=== PATIENT | female | born 1955 | race African-American/Black ===

== ENCOUNTER 2019-05-07 03:22 | Emergency (ER) | payer MEDICAID ==
[~2019-05-07] VITALS: Ht 162.6 cm; Wt 59.0 kg
--- NOTE | 2019-05-07 03:28 | Emergency Room Report ---
History of Present Illness General Chief Complaint: Female Urogenital Problems Source: Patient, Medical Record Present Illness HPI This is a 64-year-old female with a history of hypertension and psychiatric history. She presents with chief complaint of rectal bleeding and dysuria. Onset today. She says she is been constipated and group home gave her something for the constipation. She says she was straining and pushing and she noticed some blood in the stool. She also said that she been eating out a lot. No fever chills but no nausea no vomiting. No abdominal pain. Denies any other complaint. Allergies: Coded Allergies: HYDROCODONE (Verified Allergy, Unknown, 05/07/19) Patient History Past Medical History: see triage record, old chart reviewed, psych hx Past Surgical History: other Pertinent Family History: none Social History: Denies: smoking Last Menstrual Period: na Now: No Immunizations: other Reviewed Nursing Documentation: PMH: Agreed; PSxH: Agreed Nursing Documentation-PMH Hx Hypertension: Yes History Of Psychiatric Problem: Yes - bipolar, schizo Review of Systems Eye: Denies: eye pain, blurred vision ENT: Denies: ear pain, nose congestion, throat swelling Respiratory: Denies: cough, shortness of breath Cardiovascular: Denies: chest pain, palpitations Gastrointestinal: Denies: abdominal pain, diarrhea, nausea, vomiting Genitourinary: Reports: frequency Musculoskeletal: Denies: back pain, joint pain Skin: Denies: rash Neurological: Denies: headache, numbness Endocrine: Denies: increased thirst, increased urine Hematologic/Lymphatic: Denies: easy bruising All Other Systems: negative except mentioned in HPI Physical Exam Vital Signs Date Time Temp Pulse Resp B/P (MAP) Pulse Ox O2 Delivery O2 Flow Rate FiO2 05/07/19 03:16 97.5 51 14 127/71 (89) 93 Room Air Vitals normal Sp02 EP Interpretation: reviewed, normal General Appearance: well appearing, no apparent distress, alert Head: normocephalic, atraumatic Eyes: bilateral eye PERRL, bilateral eye EOMI ENT: hearing grossly normal, normal pharynx Neck: full range of motion, supple, no meningismus Respiratory: chest non-tender, lungs clear, normal breath sounds Cardiovascular #1: regular rate, rhythm, no murmur Gastrointestinal: normal bowel sounds, non tender, no mass, no organomegaly, no bruit, non-distended Rectal: normal rectal tone, heme negative stool Musculoskeletal: back normal, gait/station normal, normal range of motion Psychiatric: mood/affect normal Medical Decision Making Diagnostic Impression: Primary Impression: Rectal bleeding Additional Impression: Anemia Qualified Codes: D64.9 - Anemia, unspecified ER Course Patient presents this is most likely secondary to straining from constipation. Stool is heme-negative. She is anemic but appear to be chronic. No evidence of UTI. No active bleeding. Will discharge back to group home. Last Vital Signs Date Time Temp Pulse Resp B/P (MAP) Pulse Ox O2 Delivery O2 Flow Rate FiO2 05/07/19 03:16 97.5 51 14 127/71 (89) 93 Room Air Status: unchanged Disposition: [facility] Condition: Stable Additional Instructions: Follow-up with your doctor in 7 days. Return if worse. Yayo Fernandez MD May 07, 2019 03:28
--- NOTE | 2019-05-07 03:45 | NUR ---
Recieved pt from [facility] with c/o blod in stool and possible heaturia, pt denies, states no s/s and deneis cp or any pain, no sob or labored breathing, pt is awake, alert and oriented x 4, immediately gowned and placed on cardiac monitoring, will resume care as ordered and closely monitor.
[2019-05-07] MEDS ORDERED: BENZTROPINE ME0.5 MG PO (04:00)
[2019-05-07] MEDS ORDERED: KLONOPIN0.5 MG ORAL (04:00)
[2019-05-07] MEDS ORDERED: RISPERDAL1 MG PO (04:00)
[2019-05-07] MEDS ORDERED: AMLODIPINE BESYL5 MG ORAL (04:00)
[2019-05-07] MEDS ORDERED: DULCOLAX10 MG RC (04:00)
[2019-05-07] MEDS ORDERED: MILK OF MA400 MG/51 ORAL (04:00)
[2019-05-07] MEDS ORDERED: FERROUS SULFAT325 MG ORAL (04:00)
[2019-05-07] MEDS ORDERED: VITAMIN C 250250 MG PO (04:00)
[2019-05-07] MEDS ORDERED: ATIVAN1 MG ORAL (04:00)
[2019-05-07] MEDS ORDERED: MULTIVITAMINS1 EA11 ORAL (04:00)
[2019-05-07] MEDS ORDERED: LOVENOX10 M4 SUBQ (04:00)
[2019-05-07] MEDS ORDERED: DOCUSATE SODIU100 MG ORAL (04:00)
[2019-05-07] MEDS ORDERED: NITRO-BID1 GM TOPIC (04:00)
[2019-05-07] MEDS ORDERED: FAMOTIDINE20 MG ORAL (04:00)
[2019-05-07 04:06] LABS: APPEARANCE,URINE CLEAR; BILIRUBIN, URINE NEGATIVE (NEGATIVE); COLOR,URINE PALE YELLOW; GLUCOSE, URINE (UA) NEGATIVE (NEGATIVE); KETONES,URINE NEGATIVE (NEGATIVE); LEUKOCYTE ESTERASE ,URINE 1+ (NEGATIVE); NITRITE,URINE NEGATIVE (NEGATIVE); PH,URINE 6 (4.5-8.0); PROTEIN,URINE NEGATIVE (NEGATIVE); UROBILINOGEN,URINE NORMAL MG/DL (0.0-1.0)
[2019-05-07 04:16] LABS: ANION GAP 10 mmol/L (5-15); BASOPHILS % (AUTO) 1.4 % (0.0-2.0); BLOOD UREA NITROGEN 16 mg/dL (7-18); CALCIUM 8.6 MG/DL (8.5-10.1); CARBON DIOXIDE 26 MMOL/L (21-32); CHLORIDE 105 MMOL/L (98-107); CREATININE 0.9 MG/DL (0.55-1.30); EOSINOPHILS % (AUTO) 1.5 % (0.0-3.0); HEMATOCRIT 30.9 % (37.0-47.0); HEMOGLOBIN 9.3 G/DL (12.0-16.0); LYMPHOCYTES % (AUTO) 12.6 % (20.0-45.0); MEAN CORPUSCULAR VOLUME 85 FL (80-99); MONOCYTES % (AUTO) 5.4 % (1.0-10.0); NEUTROPHILS % (AUTO) 79.2 % (45.0-75.0); PLATELET COUNT 315 K/UL (150-450); POTASSIUM 3.9 MMOL/L (3.5-5.1); RED BLOOD COUNT 3.63 M/UL (4.20-5.40); RED CELL DISTRIBUTION WIDTH 17.9 % (11.6-14.8); SODIUM 141 MMOL/L (136-145); WHITE BLOOD COUNT 11.2 K/UL (4.8-10.8)
[2019-05-07 05:00] VITALS: BP 121/74
--- NOTE | 2019-05-07 05:15 | NUR ---
Pt in bed resting quietly, no changes or increased distress, pt incontinent of stool and urine, no bleeding noted, pt given complete bath and linen change, will continue to closely monitor and resume care as ordered, all labs sent.
--- NOTE | 2019-05-07 06:40 | NUR ---
Placed call to [facility] at [phone], spoke with timi and wendi of pt returning, ambulance eta is [id number], pt in bed sleeping, arouses easily to verbal stimuli, denies pain or any acute changes, will continue to monitor while waiting for transport, pt ahs been discharged back to facility.
[2019-05-07 07:55] VITALS: BP 121/74
--- NOTE | 2019-05-07 07:56 | NUR ---
ER DISCHARGE NOTE: Patient is cleared to be discharged per ERMD DR Dc, pt is aox4, on room air, with stable vital signs. pt was given dc instructions, pt was able to verbalize understanding, pt id band and iv site removed without complications. pt is able to ambulate with steady gait. pt took all belongings.
== END 2019-05-07 07:55 ==
LOC: EDBD 03:22 → EMR 03:40
DX: K62.5 Hemorrhage of anus and rectum (principal); D64.9 Anemia, unspecified; Z88.5 Allergy status to narcotic agent; I10 Essential (primary) hypertension; F31.9 Bipolar disorder, unspecified; F20.9 Schizophrenia, unspecified
CPT/HCPCS: 36415; 80048; 81001; 85025; 99284